=== PATIENT | female | born 1985 | race Caucasian/White ===

== ENCOUNTER 2018-04-10 02:22 | Emergency (ER) | payer SELFPAY ==
--- NOTE | 2018-04-10 02:37 | C.PDOC ---
History Of Present Illness 33 y/o female presents to the ED for evaluation of allergic reaction. Reports trying a new drug called Quadralene yesterday morning. Afterward she developed immediate itchy rash throughout her body. Patient states this is a 1st time occurrence. She denies any difficulty breathing, throat itchiness, fevers, chills, or night sweats. Did not take any medications for symptom relief. 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 denies: Dyspnea, Trouble Swallowing Home/EMS Treatment: None Past Medical History Reviewed: Historical Data, Nursing Documentation, Vital Signs - Medical History PMH: No Chronic Diseases Surgical History: No Surg Hx Family History: States: Unknown Family Hx - Social History Hx Tobacco Use: No Hx Alcohol Use: No Hx Substance Use: No - Immunization History Hx Tetanus Toxoid Vaccination: No Hx Influenza Vaccination: No Hx Pneumococcal Vaccination: No Review Of Systems Constitutional: Negative for: Fever, Chills, Sweats ENT: Negative for: Mouth Swelling, Throat Swelling, Other (difficulty swallowing) Respiratory: Negative for: Shortness of Breath Gastrointestinal: Negative for: Nausea, Vomiting Skin: Positive for: Rash Neurological: Negative for: Weakness Physical Exam - Physical Exam Appears: Non-toxic, No Acute Distress Skin: Warm, Rash (urticarial rash to arms, chest, back. ) Head: Normacephalic Eye(s): bilateral: Normal Inspection, PERRL, EOMI Oral Mucosa: Moist Tongue: Normal Appearing, No Swelling Lips: Normal Appearing, No Swelling Throat: Normal (airway is patent), No Erythema, No Drooling Neck: Trachea Midline, Supple, Other (No meningeal signs- negative kernig's and brudzinskis) Chest: Symmetrical Cardiovascular: Rhythm Regular, No Friction Rub Respiratory: No Rales, No Rhonchi, No Wheezing Extremity: Bilateral: Normal ROM Neurological/Psych: Oriented x3 Gait: Steady ED Course And Treatment O2 Sat by Pulse Oximetry: 97 (RA) Pulse Ox Interpretation: Normal Medical Decision Making Medical Decision Making: Urticarial rash w/ normal vitals and without airway involvement likely 2/2 allergic reaction to medication. Impression: allergic reaction Plan: Administered 50 mg PO Benadryl, 40 mg PO prednisone, and 20 mg PO Pepcid. 1548 Urticarial rash markedly improved. Informed pt to discontinue the Quadra lean. She is agreeable. clear for d/c home with return indications and followup. pt is agreeable to plan Disposition - Disposition Referrals: [facility] [Outside] [facility] [Outside] [facility] [Outside] Disposition Time: 03:50 Condition: GOOD Additional Instructions: STOP TAKING QUADRA LEAN. RETURN IF WORSENING OR NEW ISSUES. CHAY MONTANEZ, thank you for letting us take care of you today. Your provider was Charlie Vickres and you were treated for ALLERGIC REACTION. The emergency medical care you received today was directed at your acute symptoms. If you were prescribed any medication, please fill it and take as directed. It may take several days for your symptoms to resolve. Return to the Emergency Department if your symptoms worsen, do not improve, or if you have any other problems. Please contact your doctor or call one of the physicians/clinics you have been referred to that are listed on the Patient Visit Information form that is included in your discharge packet. Bring any paperwork you were given at discharge with you along with any medications you are taking to your follow up visit. Our treatment cannot replace ongoing medical care by a primary care provider outside of the emergency department. Thank you for allowing the [facility] team to be part of your care today. If you had an X-Ray or CT scan: A Radiologist will review the ED reading if any change in treatment is needed we will contact you. If you had a blood, urine, or wound culture: It will take several days for the results, if any change in treatment is needed we will contact you. If you had an STI test: It will take 48 hours for the results. Please call after 1 week if you have not heard back. Prescriptions: Epinephrine HCl [Epipen Auto-Injector] 0.3 mg MR Q15MIN PRN 90 Days #2 ml PRN Reason: Anaphylaxis DiphenhydrAMINE [Benadryl] 25 mg PO Q4H PRN 6 Days #36 cap PRN Reason: Allergy Symptoms predniSONE [Prednisone] 40 mg PO DAILY #5 tab Instructions: Hives (DC), Adverse Drug Reactions, Adult (DC), Allergy Skin Testing Forms: [employer] (Irish), [employer] (North Korean) Print Language: LATVIAN - Clinical Impression Clinical Impression: Allergic urticaria, Allergic reaction, Allergic reaction caused by a drug - Scribe Statement The provider has reviewed the documentation as recorded by the Da Hernandez Provider Attestation: All medical record entries made by the Da were at my direction and personally dictated by me. I have reviewed the chart and agree that the record accurately reflects my personal performance of the history, physical exam, medical decision making, and the department course for this patient. I have also personally directed, reviewed, and agree with the discharge instructions and disposition.
[2018-04-10 04:04] VITALS: BP 111/71; PULSE 80; RESP 16; TEMP 98.9; O2SAT 96
== END 2018-04-10 04:09 | disposition home or self-care (01) ==
LOC: C.ER 02:22
DX: L50.0 Allergic urticaria (principal); T50.995A Adverse effect of other drugs, medicaments and biological substances, initial encounter